=== PATIENT | female | born 1960 | race Caucasian/White ===

== ENCOUNTER → 2017-06-30 | Outpatient (CLI) | payer MEDICAID | LOC: SBRMNEURO 21:00 | PROVIDERS: ATTEND Psychiatry & Neurology Sleep Medicine | DX: G47.33 Obstructive sleep apnea (adult) (pediatric) (principal); G47.34 Idiopathic sleep related nonobstructive alveolar hypoventilation; G47.61 Periodic limb movement disorder ==

== ENCOUNTER 2017-11-17 21:14 | Emergency (ER) | payer MEDICAID ==
[2017-11-17] MEDS ORDERED: IPRATROPIUM/ALBUTEROL 3 ML DEYVIAL IH ONE (21:35)
[2017-11-17] MEDS ORDERED: predniSONE 20 MG TAB PO ONE (21:35)
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
[2017-11-17 21:48] VITALS: BP 159/89
== END 2017-11-17 22:14 | disposition home or self-care (01) ==
LOC: CED 21:14
DX: T78.49XA Other allergy, initial encounter (principal)
CPT/HCPCS: J7512